=== PATIENT | male | born 1960 | race Caucasian/White ===

== ENCOUNTER 2017-12-24 11:38 | Emergency (ER) | payer MEDICARE, OTHER ==
[~2017-12-24] VITALS: Ht 175.3 cm; Wt 76.0 kg
[2017-12-24] MEDS ORDERED: LISI-660 PO (11:52)
[2017-12-24] MEDS ORDERED: HYDROCODONE/ACETAMINOPHEN 5-325 MG TABLET PO ONE (13:00)
[2017-12-24] MEDS ORDERED: BACITRACIN 0.9 GM PACKET OINTMENT TP ONE (13:15)
[2017-12-24 13:30] VITALS: BP 122/68
== END 2017-12-24 14:29 | disposition home or self-care (01) ==
LOC: EMS 11:39
DX: S43.101A Unspecified dislocation of right acromioclavicular joint, initial encounter (principal); S80.211A Abrasion, right knee, initial encounter; G89.29 Other chronic pain; I10 Essential (primary) hypertension; F17.210 Nicotine dependence, cigarettes, uncomplicated; Z96.651 Presence of right artificial knee joint; Z88.6 Allergy status to analgesic agent; V04.99XA Pedestrian with other conveyance injured in collision with heavy transport vehicle or bus, unspecified whether traffic or nontraffic accident, initial encounter; Y93.89 Activity, other specified; Y92.488 Other paved roadways as the place of occurrence of the external cause; Y99.8 Other external cause status
CPT/HCPCS: 99284; 99406

== ENCOUNTER 2018-05-11 11:33 | Emergency (ER) | payer MEDICARE, OTHER ==
[~2018-05-11] VITALS: Ht 175.3 cm; Wt 86.4 kg
[~2018-05-11 11:33] MED LIST: LISI-660 PO
[2018-05-11] MEDS ORDERED: CLON-570 PO (12:13)
[2018-05-11] MEDS ORDERED: METH10 PO (12:13)
[2018-05-11] MEDS ORDERED: MORPHINE SULFATE 10 MG/ML SYRINGE IVP ONE ×3 (12:30→19:45)
[2018-05-11 12:59] LABS: GLUCOSE,POINT OF CARE 78 MG/DL (70-110)
[2018-05-11] MEDS ORDERED: PROPOFOL 1000 MG/ISO-OSM 100 ML IV ONE (14:17)
[2018-05-11] MEDS ORDERED: LORazepam 2 MG/ML VIAL IVP ONE (17:45)
[2018-05-11] MEDS ORDERED: NICOTINE 21 MG/24 HOUR PATCH TD ONE (21:15)
[2018-05-11] MEDS ORDERED: FentaNYL CITRATE-PF 100 MCG/2 ML VIAL IVP ONE (22:00)
[2018-05-11] MEDS: LORazepam 2 MG/ML VIAL IVP ONE ×2 (22:10→22:24)
[2018-05-11] MEDS ORDERED: MIDAZOLAM HCL 2 MG/2 ML VIAL IVP ONE (23:30)
[2018-05-11] MEDS ORDERED: KETAMINE HCL 50 MG/ML 10 ML VIAL IVP ONE (23:30)
[2018-05-12] MEDS ORDERED: SODIUM CHLORIDE 0.9% 10 ML ONE (00:36)
[2018-05-12] MEDS ORDERED: NALOXONE HCL 1 MG/ML 2 ML SYG ONE (00:40)
[2018-05-12] MEDS ORDERED: MORPHINE SULFATE 4 MG/ML SYRINGE ONE (00:59)
[2018-05-12] MEDS ORDERED: MIDAZOLAM HCL 2 MG/2 ML VIAL IVP ONE ×3 (01:00→01:15)
[2018-05-12] MEDS ORDERED: MORPHINE SULFATE 4 MG/ML SYRINGE IVP ONE (01:00)
[2018-05-12] MEDS ORDERED: ETOMIDATE 2 MG/ML 10 ML VIAL ONE (01:05)
[2018-05-12] MEDS ORDERED: LORazepam 2 MG/ML VIAL IVP ONE ×2 (01:15→01:45)
[2018-05-12] MEDS ORDERED: ETOMIDATE 2 MG/ML 10 ML VIAL IVP ONE (01:15)
[2018-05-12] MEDS ORDERED: HydrALAZINE HCL 20 MG/ML VIAL IVP ONE (02:00)
[2018-05-12 04:09] LABS: GLUCOSE,POINT OF CARE 69 MG/DL (70-110)
[2018-05-12 04:45] LABS: BASOPHILS % (AUTO) 0.6 % (0.0-2.0); HEMATOCRIT 37.4 % (41-53); HEMOGLOBIN 12.5 g/dL (13.5-17.5); LYMPHOCYTES # (AUTO) 1.7 K/uL (1.0-4.8); LYMPHOCYTES % (AUTO) 16.4 % (22.0-44.0); MEAN CORPUSCULAR HEMOGLOBIN 28.2 pg (26.0-34.0); MEAN CORPUSCULAR HGB CONC 33.4 G/dL (31.0-37.0); MEAN CORPUSCULAR VOLUME 85 fL (80-100); MONOCYTES # (AUTO) 0.7 K/uL (0.1-1.0); MONOCYTES % (AUTO) 6.9 % (2.0-9.0); NEUTROPHILS # (AUTO) 7.7 K/uL (1.8-7.7); NEUTROPHILS % (AUTO) 75.1 % (40.0-70.0); PLATELET COUNT (AUTO) 342 K/uL (150-450); RED BLOOD CELL COUNT(AUTO) 4.42 MIL/uL (4.50-5.90); RED CELL DISTRIBUTION WIDTH 15.7 % (11.5-14.5)
[2018-05-12 04:48] LABS: ANION GAP 6 mmol/L (8-16); CALCIUM, TOTAL 8.3 mg/dL (8.8-10.5); CARBON DIOXIDE 27 mmol/L (22-29); CHLORIDE 104 mmol/L (98-107); GLOMERULAR FILTR. RATE CALC > 60 mL/min (>60); GLUCOSE,RANDOM 83 mg/dL (70-110); POTASSIUM 3.4 mmol/L (3.5-5.1); SODIUM SERUM 137 mmol/L (136-145); UREA NITROGEN, BLOOD 15 mg/dL (7-18)
[2018-05-12] MEDS ORDERED: FentaNYL CITRATE-PF 100 MCG/2 ML VIAL IVP ONE ×3 (05:00→11:45)
[2018-05-12] MEDS ORDERED: METHADONE HCL 10 MG/5 ML SOLUTION ORAL.SYG PO ONE (07:45)
[2018-05-12 09:04] LABS: GLUCOSE,POINT OF CARE 80 MG/DL (70-110)
[2018-05-12 10:09] VITALS: BP 153/90
== END 2018-05-12 12:01 | disposition short-term general hospital (02) ==
LOC: EMS 11:35
DX: S73.004A Unspecified dislocation of right hip, initial encounter (principal); I10 Essential (primary) hypertension; E11.9 Type 2 diabetes mellitus without complications; Z96.641 Presence of right artificial hip joint; Z96.659 Presence of unspecified artificial knee joint; Z79.899 Other long term (current) drug therapy; X50.9XXA Other and unspecified overexertion or strenuous movements or postures, initial encounter; Y93.89 Activity, other specified; Y92.89 Other specified places as the place of occurrence of the external cause; Y99.8 Other external cause status
CPT/HCPCS: 27265; 36415; 72170; 73502 ×2; 80048; 82962; 85025; 93041; 96374; 96375; 96376; 99285; G0238; J0360; J2060 ×2; J2250; J2270 ×2; J2310; J2704; J3010 ×2; J3490 ×2; 99152

== ENCOUNTER 2020-01-15 12:11 | Emergency (ER) | payer MEDICARE, OTHER ==
[~2020-01-15] VITALS: Ht 175.3 cm; Wt 75.0 kg
[~2020-01-15 12:11] MED LIST changes: +CLON0.1T83 PO; +METH10 PO
[2020-01-15 12:33] VITALS: BP 154/107
== END 2020-01-15 13:43 | disposition left against medical advice (07) ==
LOC: EMS 12:20
DX: S05.32XA Ocular laceration without prolapse or loss of intraocular tissue, left eye, initial encounter (principal); Z53.21 Procedure and treatment not carried out due to patient leaving prior to being seen by health care provider; W45.8XXA Other foreign body or object entering through skin, initial encounter; Y93.89 Activity, other specified; Y92.89 Other specified places as the place of occurrence of the external cause; Y99.8 Other external cause status

== ENCOUNTER 2024-09-19 15:05 | Emergency (ER) | payer MEDICARE, MEDICAID ==
[~2024-09-19] VITALS: Ht 172.7 cm; Wt 83.9 kg
[~2024-09-19 15:05] MED LIST changes: +AMLO10TA55 PO; +ATOR20TA65 PO; +CELE-146 PO; -CLON0.1T83 PO; +GABA-1181 PO; +LEVE10006 PO; -LISI-660 PO; +LISI-892 PO; +METH5SOL20 PO
[2024-09-19 15:29] VITALS: TEMP 97.8
[2024-09-19 17:50] VITALS: BP 148/85; PULSE 64; RESP 18; O2SAT 96
[2024-09-19] MEDS: ACETAMINOPHEN 500 MG TABLET PO ONE (18:14)
[2024-09-19 18:45] LABS: GLUCOMETER DEV NAME(LOC) ERT.6; GLUCOSE,POINT OF CARE 103 MG/DL (70-110)
== END 2024-09-19 18:35 | disposition home or self-care (01) ==
LOC: EMS 15:05
DX: M54.50 Low back pain, unspecified (principal); E11.9 Type 2 diabetes mellitus without complications; I10 Essential (primary) hypertension; Z88.6 Allergy status to analgesic agent; Z96.659 Presence of unspecified artificial knee joint; Z79.899 Other long term (current) drug therapy; W19.XXXA Unspecified fall, initial encounter; Y93.01 Activity, walking, marching and hiking; Y92.89 Other specified places as the place of occurrence of the external cause; Y99.8 Other external cause status
CPT/HCPCS: 72100; 82948; 82962; 99283